=== PATIENT | male | born 1980 | race Caucasian/White ===

== ENCOUNTER 2016-11-26 06:08 | Emergency (ER) | payer BC ==
[~2016-11-26] VITALS: Ht 175.3 cm; Wt 113.2 kg
[~2016-11-26 06:08] MED LIST: AZIT250T PO
[2016-11-26 06:18] VITALS: TEMP 36.6; Ht 175.3 cm; Wt 113.2 kg
[2016-11-26] MEDS ORDERED: IBUP-103 PO (06:48)
[2016-11-26] MEDS ORDERED: ACET-1311 PO (06:48)
[2016-11-26] MEDS ORDERED: KETOROLAC TROMETHAMINE 60 MG/2 ML VIAL IM STA (07:02)
[2016-11-26] MEDS ORDERED: KETO10TA PO (07:05)
[2016-11-26] MEDS ORDERED: PRED20TA PO (07:05)
--- NOTE | 2016-11-26 07:13 | EMERGENCY ROOM VISIT NOTE ---
History Report prepared by Olga: Kirill Ayon Under the Supervision of: Dr. Curry Hall D.O. First contact with patient: 06:56 Chief Complaint: BACK PAIN Stated Complaint: BACK History of Present Illness The patient is a 36 year old male who presents to the Emergency Room with complaints of persistent right upper buttock pain starting yesterday morning. He woke up with the pain. He has pain radiating down to his left leg and tingling in his left toes. He denies any recent injuries, abdominal pain, back pain, urinary symptoms, or any other complaints. The patient is currently unemployed. Source of History: patient Onset: yesterday morning Position: buttock (right) Timing: other (persistent) Associated Symptoms: No abdominal pain, No back pain, No urinary symptoms Review of Systems See HPI for pertinent positives & negatives. A total of 10 systems reviewed and were otherwise negative. Past Medical & Surgical Medical Problems: (1) Fever (2) No pertinent past medical history (3) Pneumonia Family History Diabetes mellitus Social History Smoking Status: Current Every Day Smoker Alcohol Use: occasionally Drug Use: none Marital Status: Occupation Status: employed Current/Historical Medications Scheduled Ibuprofen Tab (Advil), 400-600 MG PO Q6H Prednisone (Prednisone), 3 TAB PO DAILY Scheduled PRN Acetaminophen (Tylenol), 325 MG PO UD PRN for Pain Ketorolac (Toradol), 10 MG PO Q6H PRN for Pain Allergies Coded Allergies: No Known Allergies (Unverified , NONE, 11/26/16) Physical Exam Vital Signs Date Time Temp Pulse Resp B/P Pulse Ox O2 Delivery O2 Flow Rate FiO2 11/26/16 06:18 36.6 78 20 146/92 98 Room Air Physical Exam CONSTITUTIONAL/VITAL SIGNS: Reviewed / noted above. GENERAL: Non-toxic in appearance. INTEGUMENTARY: Warm, dry, and [place]. HEAD: Normocephalic. EYES: without scleral icterus or trauma. ENT/OROPHARYNX: clear and moist. LYMPHADENOPATHY/NECK: Is supple without lymphadenopathy or meningismus. RESPIRATORY: Lungs clear and equal. CARDIOVASCULAR: Regular rate and rhythm. GI/ABDOMEN: Soft and nontender. No organomegaly or pulsatile mass. No rebound or guarding. Normal bowel sounds. EXTREMITIES: Warm and well perfused. Normal reflexes. Normal strength and sensation. BACK: No CVA tenderness. NEUROLOGICAL: Intact without focal deficits. PSYCHIATRIC: normal affect. MUSCULOSKELETAL: Normally developed with good muscle tone. Medical Decision & Procedures ED Course 0656: Previous medical records were reviewed. The patient was evaluated in room B05. A complete history and physical examination was performed. 0702: Toradol Inj 60 mg IM 0715: Decadron Inj 10 mg IM. On reevaluation, the patient is resting comfortably. I discussed the results and findings with the patient. He verbalized agreement of the treatment plan. He was discharged home. Medical Decision Differential diagnosis: Etiologies such as musculoskeletal, disc herniation, fracture, aortic disease, metastatic disease, cord compression, discitis, infection, renal colic, gastrointestinal, acute exacerbation of chronic back pain, sciatica, cauda equina, as well as others were entertained. This is a 36-year-old male who presents to the ED with a chief complaint of right-sided back pain that radiates into all of his toes. The patient states that his symptoms started yesterday morning when he awoke. He denies any trauma or injury. His pain starts in the right upper gluteal region. He denies any bowel or bladder dysfunction. Denies any recent trauma. Denies abdominal pains or flank pains. He denies any fevers or recent illness. Exam of the patient reveals normal lower extremity reflexes. He has normal strength and negative straight leg raise. His motor and sensory function appears to be intact. Based on exam and symptoms, the patient is felt to have sciatica. He was given Toradol IM and Decadron IM. He was discharged on Toradol and prednisone. He is told to follow-up with his family doctor if symptoms persist. Impression Primary Impression: Sciatica Scribe Attestation The scribe's documentation has been prepared under my direction and personally reviewed by me in its entirety. I confirm that the note above accurately reflects all work, treatment, procedures, and medical decision making performed by me. Departure Information Dispostion Home / Self-Care Prescriptions Prednisone (Prednisone) 20 Mg Tab 3 TAB PO DAILY for 5 Days, #15 TAB Prov: Curry Hall D.O. 11/26/16 Ketorolac (Toradol) 10 Mg Tab 10 MG PO Q6H Y for Pain, #20 TAB Prov: Curry Hall D.O. 11/26/16 Referrals No Doctor, Assigned (PCP) Forms HOME CARE DOCUMENTATION FORM, IMPORTANT VISIT INFORMATION Patient Instructions ED Sciatica, My [facility] Additional Instructions Toradol as prescribed. Prednisone as prescribed Follow-up with your doctor if symptoms persist be in 1 week. Return here for bowel or bladder dysfunction, severe weakness or paralysis of extremities.
[2016-11-26] MEDS ORDERED: DEXAMETHASONE SOD INJ 10 MG/ML VIAL IM ONE (07:15)
[2016-11-26 07:27] VITALS: BP 134/79; PULSE 78; O2SAT 97
== END 2016-11-26 07:29 | disposition home or self-care (01) ==
LOC: C.EDB 06:09
DX: M54.42 Lumbago with sciatica, left side (principal); F17.210 Nicotine dependence, cigarettes, uncomplicated

== ENCOUNTER 2017-07-03 06:47 | Emergency (ER) | payer BC ==
[~2017-07-03] VITALS: Ht 175.3 cm; Wt 108.0 kg
[~2017-07-03 06:47] MED LIST changes: +ACET-1311 PO; -AZIT250T PO; +IBUP-103 PO
[2017-07-03 06:52] VITALS: TEMP 36.4; Ht 175.3 cm; Wt 108.0 kg
--- NOTE | 2017-07-03 07:54 | DIAGNOSTIC IMAGING REPORT ---
R SHOULDER MIN 2 VIEWS ROUTINE CLINICAL HISTORY: 36 years-old Male presenting with injury. TECHNIQUE: Internal rotation, external rotation, and Grashey views of the right shoulder were obtained. COMPARISON: None. FINDINGS: Glenohumeral and acromioclavicular joints congruent. No acute fracture or subluxation. A bone island may be present in the humeral head. Regional soft tissues normal. Visualized portion of the right hemithorax normal. IMPRESSION: No acute osseous injury of the right shoulder. Electronically signed by: Terry Farnsworth M.D. 07/03/2017 7:52 AM Dictated Date/Time: 07/03/2017 7:51 AM
--- NOTE | 2017-07-03 08:20 | EMERGENCY ROOM VISIT NOTE ---
History Report prepared by Olga: Arlene Walden Under the Supervision of: Dr. Curry Hall D.O. First contact with patient: 07:03 Chief Complaint: SHOULDER PAIN Stated Complaint: RT SHOULDER INJURY History of Present Illness The patient is a 36 year old male who presents to the Emergency Room with complaints of constant right shoulder pain since last night. The patient was playing with his children yesterday and landed on his right shoulder. He has had pain in the shoulder ever since. He describes his pain as feeling sore. He rates his pain as an 8/10 in severity. Movement exacerbates his pain. The patient denies any other complaints. Source of History: patient Onset: last night Position: shoulder (right) Symptom Intensity: 8/10 Quality: other (sore) Timing: constant Modifying Factors (Worsening): movement Review of Systems See HPI for pertinent positives & negatives. A total of 10 systems reviewed and were otherwise negative. Past Medical & Surgical Medical Problems: (1) Fever (2) No pertinent past medical history (3) Pneumonia Family History Diabetes mellitus Social History Smoking Status: Current Every Day Smoker Alcohol Use: occasionally Drug Use: none Marital Status: Occupation Status: employed Current/Historical Medications No Active Prescriptions or Reported Meds Allergies Coded Allergies: No Known Allergies (Unverified , NONE, 11/26/16) Physical Exam Vital Signs Date Time Temp Pulse Resp B/P (MAP) Pulse Ox O2 Delivery O2 Flow Rate FiO2 07/03/17 06:52 36.4 72 16 130/76 98 Room Air Physical Exam CONSTITUTIONAL/VITAL SIGNS: Reviewed / noted above. GENERAL: Non-toxic in appearance. INTEGUMENTARY: Warm, dry, and [place]. HEAD: Normocephalic. EYES: without scleral icterus or trauma. ENT/OROPHARYNX: clear and moist. LYMPHADENOPATHY/NECK: Is supple without lymphadenopathy or meningismus. RESPIRATORY: Lungs clear and equal. CARDIOVASCULAR: Regular rate and rhythm. GI/ABDOMEN: Soft and nontender. No organomegaly or pulsatile mass. No rebound or guarding. Normal bowel sounds. EXTREMITIES: Warm and well perfused. BACK: No CVA tenderness. NEUROLOGICAL: Intact without focal deficits. PSYCHIATRIC: normal affect. MUSCULOSKELETAL: Normally developed with good muscle tone. Medical Decision & Procedures ER Provider Diagnostic Interpretation: Radiology results as stated below per my review and radiologist interpretation: R SHOULDER MIN 2 VIEWS ROUTINE CLINICAL HISTORY: 36 years-old Male presenting with injury. TECHNIQUE: Internal rotation, external rotation, and Grashey views of the right shoulder were obtained. COMPARISON: None. FINDINGS: Glenohumeral and acromioclavicular joints congruent. No acute fracture or subluxation. A bone island may be present in the humeral head. Regional soft tissues normal. Visualized portion of the right hemithorax normal. IMPRESSION: No acute osseous injury of the right shoulder. Electronically signed by: Terry Farnsworth M.D. 07/03/2017 7:52 AM Dictated Date/Time: 07/03/2017 7:51 AM ED Course 0715: Previous medical records were reviewed. The patient was evaluated in room A4B. A complete history and physical examination was performed. 0821: I reassessed the patient at this time. He is feeling better and resting comfortably. I discussed the results and treatment plan with the patient. I answered all pertaining questions that he had. He expressed understanding and verbalized agreement. The patient will be discharged home. Medical Decision Differential includes close head injury, intracranial bleed, facial trauma, cervical spine trauma, chest and thoracic trauma, abdominal and intra-abdominal trauma, spine neurologic trauma, extremity trauma. This is a 36-year-old male who presents to the ED with a chief complaint of an injury to his right shoulder. Exam reveals mild tenderness. He has some discomfort with range of motion. X-ray did not show any fractures or dislocations. His symptoms are most consistent with a contusion. The patient was felt to be stable for discharge and outpatient follow-up. Medication Reconcilliation Current Medication List: was personally reviewed by me Blood Pressure Screening Patient's blood pressure: Normal blood pressure Impression Primary Impression: Contusion Scribe Attestation The scribe's documentation has been prepared under my direction and personally reviewed by me in its entirety. I confirm that the note above accurately reflects all work, treatment, procedures, and medical decision making performed by me. Departure Information Dispostion Home / Self-Care Prescriptions No Active Prescriptions or Reported Meds Referrals No Doctor, Assigned (PCP) Forms HOME CARE DOCUMENTATION FORM, IMPORTANT VISIT INFORMATION Patient Instructions My [facility] Additional Instructions Take Tylenol/Motrin as needed for pain. Follow-up with your doctor if symptoms persist more than 1 week. Problem Qualifiers Primary Impression: Contusion Encounter type: initial encounter Contusion area: shoulder Laterality: right Qualified Codes: S40.011A - Contusion of right shoulder, initial encounter
[2017-07-03 08:45] VITALS: BP 124/40; PULSE 68; O2SAT 96
== END 2017-07-03 08:46 | disposition home or self-care (01) ==
LOC: C.EDB 06:49 → C.EDA 08:46
DX: S40.011A Contusion of right shoulder, initial encounter (principal); X58.XXXA Exposure to other specified factors, initial encounter; F17.200 Nicotine dependence, unspecified, uncomplicated; Z83.3 Family history of diabetes mellitus

== ENCOUNTER → 2017-12-15 | Outpatient (CLI) | payer OTHER ==
[2017-12-15 09:43] LABS: BASO % 0.1 %; BASO ABS # 0.01 K/uL (0-0.2); EOS % 2.8 %; HEMOGLOBIN 16.1 g/dL (14.0-18.0); IG# 0.01 K/uL (0.00-0.02); LYMPH % 27.3 %; LYMPH ABS # 1.96 K/uL (1.2-3.4); MEAN CELL VOLUME 87.7 fL (80-100); MEAN CORPUSCULAR HEMOGLOBIN 31.4 pg (25-34); MEAN CORPUSCULAR HGB CONC 35.8 g/dl (32-36); MEAN PLATELET VOLUME 8.9 fL (7.4-10.4); MONO % 7.4 %; MONO ABS # 0.53 K/uL (0.11-0.59); NEUT % 62.3 %; NEUT ABS # 4.48 K/uL (1.4-6.5); PLATELET COUNT 205 K/uL (130-400); RED CELL DISTRIBUTION WIDTH CV 13.1 % (11.5-14.5); RED CELL DISTRIBUTION WIDTH SD 41.7 fL (36.4-46.3); WHITE BLOOD COUNT 7.19 K/uL (4.8-10.8)
[2017-12-15 10:13] LABS: ALBUMIN 3.9 gm/dl (3.4-5.0); ALKALINE PHOSPHATASE 81 U/L (45-117); ALT/SGPT 31 U/L (12-78); AST/SGOT 18 U/L (15-37); BLOOD UREA NITROGEN 15 mg/dl (7-18); CALCIUM 9.3 mg/dl (8.5-10.1); CARBON DIOXIDE 29 mmol/L (21-32); CHOLESTEROL 183 mg/dl (0-200); GLUCOSE 87 mg/dl (70-99); LDL CHOLESTEROL CALCULATED 114 mg/dl; POTASSIUM 4.3 mmol/L (3.5-5.1); SODIUM 138 mmol/L (136-145); TOTAL PROTEIN 7.6 gm/dl (6.4-8.2)
== END | disposition home or self-care (01) ==
LOC: C.LAB1850 08:50
PROVIDERS: ATTEND Physician Assistant
DX: Z13.6 Encounter for screening for cardiovascular disorders (principal); Z13.220 Encounter for screening for lipoid disorders; Z13.228 Encounter for screening for other metabolic disorders